=== PATIENT | female | born 1955 | race Caucasian/White ===

== ENCOUNTER 2018-01-11 10:13 | Emergency (ER) | payer BC ==
[2018-01-11 10:32] VITALS: BP 116/52
--- NOTE | 2018-01-11 10:32 | EDM.PDOC ---
ED HPI GENERAL MEDICAL PROBLEM - General Chief Complaint: Respiratory Problem Stated Complaint: ASTHMA ACTING UP Time Seen by Provider: 01/11/18 10:31 Source of Information: Reports: Patient, Old Records, RN, RN Notes Reviewed History Limitations: Reports: No Limitations - History of Present Illness INITIAL COMMENTS - FREE TEXT/NARRATIVE: C/O wheezing in evenings, and congestion, especially worse after mowing lawn. Denies fevers or chills. Feels improved after using ProAir inhaler. Denies any difficulty breathing or resp. distress. 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 Treatments - Related Data Allergies Allergy/AdvReac Type Severity Reaction Status Date / Time No Known Allergies Allergy Verified 01/11/18 10:32 Home Meds: Home Meds Fluticasone/Salmeterol [Advair Diskus 250-50] 1 puff PO BID 08/18/16 [History] Brinzolamide [Azopt 1% Ophth Susp] 1 drop EYEBOTH BID 01/11/18 [History] Past Medical History HEENT History: Reports: Allergic Rhinitis Respiratory History: Reports: Asthma Neurological History: Reports: Migraines Social & Family History - Family History Family Medical History: Noncontributory - Caffeine Use Caffeine Use: Reports: Coffee - Living Situation & Occupation Living situation: Reports: , with Spouse ED ROS GENERAL - Review of Systems Review Of Systems: ROS reveals no pertinent complaints other than HPI. ED EXAM, GENERAL - Physical Exam Exam: See Below Exam Limited By: No Limitations General Appearance: Alert, WD/WN, No Apparent Distress Eye Exam: Bilateral Eye: Normal Inspection Ears: Normal External Exam, Normal Canal, Hearing Grossly Normal, Normal TMs Nose: No Blood, Nasal Drainage (clear, mild) Throat/Mouth: Normal Inspection, Normal Lips, Normal Teeth, Normal Gums, Normal Voice, No Airway Compromise, Other (no erythema, mild streaks of clear postnasal drip) Head: Atraumatic, Normocephalic Neck: Normal Inspection, Supple, Non-Tender, Full Range of Motion. No: Lymphadenopathy (L), Lymphadenopathy (R) Respiratory/Chest: No Respiratory Distress, No Accessory Muscle Use, Chest Non- Tender, Crackles. No: Rales, Rhonchi, Wheezing, Stridor, Pleural Rub, Retractions, Splinting Cardiovascular: Normal Peripheral Pulses, Regular Rate, Rhythm, No Edema, No Gallop, No JVD, No Murmur, No Rub Neurological: Alert, Oriented, No Motor/Sensory Deficits Psychiatric: Normal Mood Skin Exam: Warm, Dry, Intact, Normal Color, No Rash Course - Vital Signs Last Recorded V/S: Last Vital Signs Temp 37.1 C 01/11/18 10:24 Pulse 70 01/11/18 10:24 Resp 16 01/11/18 10:24 BP 116/52 L 01/11/18 10:24 Pulse Ox 99 01/11/18 10:24 Departure - Departure Time of Disposition: 10:58 Disposition: Home, Self-Care 01 Condition: Good Clinical Impression: Seasonal allergies, Acute asthma - Discharge Information Instructions: Allergies, Adult, [id number], Asthma, Adult, [id number] Forms: ED Department Discharge Additional Instructions: Rx: Prednisone 20mg *Take with a meal. Use over the counter Claritin (Loratadine) 10mg: Take one tablet daily until symptoms completely resolve. Use your Albuterol (ProAir) inhaler: 2 puffs every 4 hours as needed. Follow up in clinic if not improving in 4 to 5 days.
== END 2018-01-11 11:10 | disposition home or self-care (01) ==
LOC: DL.ED 10:13
DX: J45.909 Unspecified asthma, uncomplicated (principal); Z79.899 Other long term (current) drug therapy
CPT/HCPCS: 99285

== ENCOUNTER 2023-07-11 05:48 | Day surgery (SDC) | payer MEDICARE, BC ==
[~2023-07-11 05:48] MED LIST: Dextrose 5%-0.45% NaCl 1,000 ML IV SCH
[2023-07-11] MEDS ORDERED: Midazolam 1 MG/ML 2 ML SDV ONE (05:59)
[2023-07-11] MEDS ORDERED: fentaNYL 100 MCG/2 ML SDV ONE (05:59)
[2023-07-11] MEDS ORDERED: fentaNYL 100 MCG/2 ML SDV IV ONE ×6 (07:05→07:16)
[2023-07-11] MEDS ORDERED: Midazolam 1 MG/ML 2 ML SDV IV ONE ×6 (07:06→07:12)
[2023-07-11 08:38] VITALS: BP 94/53; PULSE 58
== END 2023-07-11 09:20 | disposition home or self-care (01) ==
LOC: DL.ENDO 05:48
PROVIDERS: ATTEND Internal Medicine Gastroenterology
DX: Z12.11 Encounter for screening for malignant neoplasm of colon (principal); K64.8 Other hemorrhoids; N18.2 Chronic kidney disease, stage 2 (mild); J45.909 Unspecified asthma, uncomplicated; F41.1 Generalized anxiety disorder; Z86.16 Personal history of COVID-19; Z79.899 Other long term (current) drug therapy
CPT/HCPCS: G0121; J2250; J3010; J7042

== ENCOUNTER 2024-02-10 16:07 | Emergency (ER) | payer MEDICARE, BC ==
[2024-02-10] MEDS: Albuterol/Ipratropium 3.0-0.5 MG/3 ML Neb Soln NEB ONE ×3 (16:27→17:14)
[2024-02-10] MEDS: methylPREDNISolone Sod Succ 125 MG in Sodium Chloride 0.9% 100 ML IV ONE (16:30)
[2024-02-10] MEDS: methylPREDNISolone Sodium Succinate 125 MG/2 ML SDV IVPUSH ONE (16:40)
[2024-02-10] MEDS: Sodium Chloride 0.9% 10 ML Syringe FLUSH PRN (16:41)
[2024-02-10] MEDS: Benzonatate 100 MG Cap PO ONE (17:14)
[2024-02-10 17:54] LABS: BASOPHILS PERCENT AUTO 0.4 % (0.0-1.0); HEMATOCRIT 40.7 % (37.0-47.0); HEMOGLOBIN 13.7 g/dL (12.0-16.0); LYMPHOCYTES PERCENT AUTO 26.5 % (20.5-50.1); MEAN CORPUSCULAR HEMOGLOBIN 31.6 pg (27.0-34.0); MEAN CORPUSCULAR HGB CONC 33.7 g/dL (33.0-35.0); MONOCYTES PERCENT AUTO 7.7 % (2-8); NEUTROPHILS PERCENT AUTO 63.4 % (42.2-75.2); PLATELET COUNT,PLT 298 10^3/uL (150-450); RED BLOOD CELL COUNT 4.33 10^6/uL (4.2-5.4); WHITE BLOOD CELL COUNT,WBC 8.5 10^3/uL (5.0-10.0)
[2024-02-10] MEDS: Sodium Chloride 0.9% 1,000 ML IV ONE (18:09)
[2024-02-10 18:12] LABS: A/G RATIO 1.1; ALANINE AMINOTRANSFERASE,ALT 22 U/L (14-59); ALBUMIN 3.8 g/dL (3.4-5.0); ALKALINE PHOSPHATASE 79 U/L (46-116); ANION GAP 15.1 mEq/L (7-13); ASPARTATE AMNIOTRANSFERASE,AST 19 U/L (15-37); BILIRUBIN TOTAL 0.4 mg/dL (0.2-1.0); BLOOD UREA NITROGEN,BUN 13 mg/dL (7-18); BUN/CREATININE RATIO 12.1 (No establ ref range); CALCIUM 9.4 mg/dL (8.5-10.1); CARBON DIOXIDE,CO2 25 mmol/L (21-32); CHLORIDE,CL 103 mmol/L (98-107); CREATININE 1.07 mg/dL (0.55-1.02); GLUCOSE RANDOM 120 mg/dL (70-99); POTASSIUM,K 3.1 mmol/L (3.5-5.1); PROTEIN TOTAL,TP 7.2 g/dL (6.4-8.2); SODIUM,NA 140 mmol/L (136-145)
[2024-02-10 18:13] LABS: C-REACTIVE PROTEIN < 0.50 ng/dL (<=0.50); ESTIMATED GFR 57 mL/min (>=60)
[2024-02-10 18:15] VITALS: BP 127/71; PULSE 81
[2024-02-10] MEDS: Take Home: Doxycycline 100 MG Cap, 4 Cap Pack PO ONE (18:39)
[2024-02-10] MEDS: Take Home: Benzonatate 100 MG, 6 Cap Pack PO ONE (18:39)
[2024-02-10] MEDS: Take Home: Potassium Chloride 10 MEQ Tab, 10 Tab Pack PO ONE (18:39)
[2024-02-10] MEDS: guaiFENesin/Dextromethorphan 100-10 MG/5 ML Soln 5 ML Cup PO ONE (18:45)
== END 2024-02-10 19:32 | disposition home or self-care (01) ==
LOC: DL.ED 16:07
DX: J18.9 Pneumonia, unspecified organism (principal); J45.909 Unspecified asthma, uncomplicated; N18.9 Chronic kidney disease, unspecified; Z91.048 Other nonmedicinal substance allergy status
CPT/HCPCS: 36415; 71046; 80053; 80307; 83605; 85025; 86140; 87040; 96365; 96375; 99285; A9270; J2919; J3475; J7030; J3490; J7620-GY